=== PATIENT | female | born 1990 ===

== ENCOUNTER 2017-08-07 12:15 | Emergency (ER) | payer OTHER ==
[2017-08-07 12:32] VITALS: BP 98/62
--- NOTE | 2017-08-07 13:11 | UC ---
Complaint Female HPI - History Of Current Complaint Chief Complaint: [facility] Stated Complaint: STD TESTING Time Seen by Provider: 08/07/17 13:00 Hx Last Menstrual Period: 07/29/17 - Allergies/Home Medications Allergies/Adverse Reactions: Allergies Allergy/AdvReac Type Severity Reaction Status Date / Time No Known Allergies Allergy Verified 08/07/17 12:32 Home Medications: Home Medications NK [No Home Medications Reported] 08/07/17 [History Confirmed 08/07/17] PMH/Surg Hx/FS Hx/Imm Hx - Surgical History Surgical History: None - Social History Alcohol Use: Occasionally Substance Use Type: None Smoking Status (MU): Never Smoked Tobacco Physical Exam Vital Signs: Initial Vital Signs Temp 98.0 F 08/07/17 12:27 Pulse 65 08/07/17 12:27 Resp 18 08/07/17 12:27 BP 98/62 08/07/17 12:27 Pulse Ox 100 08/07/17 12:27
[2017-08-08 14:13] LABS: Trichomonas Source Endocervical (Negative)
--- NOTE | 2017-08-09 10:13 | ED ---
Progress - Progress Note Progress Note: Pt neg Gardnerella, neg claudio no change Course/Dx - Diagnoses Provider Diagnoses: Vaginal discharge
== END 2017-08-07 13:47 | disposition home or self-care (01) ==
LOC: UCEAST 12:15
DX: N89.8 Other specified noninflammatory disorders of vagina (principal)
CPT/HCPCS: 81003; 84702; 87480; 87491; 87510; 87591; 87661; 99202; G0463